=== PATIENT | female | born 1965 | race Caucasian/White ===

== ENCOUNTER → 2019-12-22 | Outpatient (CLI) | payer BC ==
[~2019-12-22] MED LIST: METF500 PO; METO100ER PO
== END | disposition home or self-care (01) ==
LOC: LAB EV 10:49 → LAB SHORT 10:49
DX: N39.0 Urinary tract infection, site not specified (principal)
CPT/HCPCS: 87086

== ENCOUNTER 2022-03-22 13:51 | Day surgery (SDC) | payer BC ==
[~2022-03-22] VITALS: Ht 167.6 cm; Wt 115.2 kg
[~2022-03-22 13:51] MED LIST changes: +CLOBET30L TOP; +METO50ER PO
--- NOTE | 2022-03-22 14:49 | NUR ---
03/22/22 1449 YUDITH HIGGINS 3 ATTEMPTS AT IV. FIRST ATTEMPT MA IN R FOREARM INFILTTRATED. SECOND ATTEMPT BY MA IN R FOREARM INFILTRATED. THIRD ATTEMPT BY MA IN L HAND SUCCESSFUL.
== END 2022-03-22 16:23 | disposition home or self-care (01) ==
LOC: ORSCSDS 13:51
PROVIDERS: Surgery
PROC: 0DJD8ZZ Inspection of Lower Intestinal Tract, Via Natural or Artificial Opening Endoscopic (ICD-10-PCS; principal; 2022-03-22 15:15)
DX: K62.5 Hemorrhage of anus and rectum (principal); I10 Essential (primary) hypertension; F41.9 Anxiety disorder, unspecified; E66.9 Obesity, unspecified; Z68.39 Body mass index [BMI] 39.0-39.9, adult; Z79.899 Other long term (current) drug therapy
CPT/HCPCS: J0461; J2405; J2704; J7120

== ENCOUNTER → 2024-10-26 | Outpatient (CLI) | payer BC | LOC: LAB SHORT 17:07 → LAB 17:07 | DX: N39.0 Urinary tract infection, site not specified (principal) | CPT/HCPCS: 87077; 87086; 87186 ==